=== PATIENT | female | born 1960 | race Caucasian/White ===

== ENCOUNTER 2019-07-09 11:11 | Emergency (ER) | payer BC ==
[2019-07-09] MEDS ORDERED: NORMAL SALINE 1000 ML 1,000 ML IV ONE (11:25)
[2019-07-09] MEDS ORDERED: KETOROLAC TROMETHAMINE INJ/PF 30 MG/1 ML SDV IV ONE (11:25)
[2019-07-09] MEDS ORDERED: METOCLOPRAMIDE HCL INJ/PF 10 MG/2 ML SDV IV ONE (11:25)
--- NOTE | 2019-07-09 11:25 | ER Document Report ---
ED Medical Screen (RME) - General Chief Complaint: Nausea/Vomiting Stated Complaint: NAUSEA,VOMITING Time Seen by Provider: 07/09/19 11:18 Primary Care Provider: MARY BETH BROWNE MD [Primary Care Provider] - Follow up as needed Mode of Arrival: Wheelchair Information source: Patient Notes: 58-year-old female with history of hypoglycemia, pancreatitis diverticulitis colitis C. difficile presents to the emergency department with reports of abdominal pain and that she is been vomiting since last Monday. Reports that she is unable to keep anything down. They did prescribe her Phenergan which did not help. She reports Zofran really did not help either. Complains of epigastric abdominal pain. Denies fever. Reports that she went to bite into plane last week because she was having diarrhea but tested negative for C. difficile at that time. Reports her problems started after she had her gallbladder removed in January. I have greeted and performed a rapid initial assessment of this patient. A comprehensive ED assessment and evaluation of the patient, analysis of test results and completion of the medical decision making process will be conducted by additional ED providers. Dictation of this chart was performed using voice recognition software; therefore, there may be some unintended grammatical errors. TRAVEL OUTSIDE OF THE [place] IN LAST 30 DAYS: No - Related Data Allergies/Adverse Reactions: latex [Latex] Allergy (Unknown, Verified 03/10/11 13:27) Sulfa (Sulfonamide Antibiotics) Allergy (Unknown, Verified 03/10/11 13:28) Past Medical History - Past Medical History Cardiac Medical History: Reports: Hx Hypercholesterolemia, Hx Hypertension - meds x 10 yrs Denies: Hx Coronary Artery Disease, Hx Heart Attack Pulmonary Medical History: Reports: Hx Asthma - no recent ER visits Denies: Hx Bronchitis, Hx COPD, Hx Pneumonia Neurological Medical History: Reports: Hx Migraine. 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 Denies: Hx Pacemaker - Immunizations Hx Diphtheria, Pertussis, Tetanus Vaccination: Yes Doctor's Discharge - Discharge Referrals: MARY BETH BROWNE MD [Primary Care Provider] - Follow up as needed
[2019-07-09 12:59] LABS: APPEARANCE,URINE SLIGHTLY-CLOUDY; BILIRUBIN,URINE SMALL (NEGATIVE); COLOR,URINE AMBER; GLUCOSE, URINE NEGATIVE (NEGATIVE); KETONES,URINE 80 mg/dL (NEGATIVE); LEUKOCYTE ESTERASE,URINE SMALL (NEGATIVE); NITRITE,URINE NEGATIVE (NEGATIVE); PROTEIN,URINE 100 mg/dL (NEGATIVE); URINE SPECIFIC GRAVITY 1.031
[2019-07-09] MEDS ORDERED: PROMETHAZINE HCL INJ 25 MG/1 ML VIAL IM ONE ×2 (13:02→19:23)
[2019-07-09] MEDS ORDERED: FENTANYL CITRATE INJ/PF 100 MCG/2 ML AMPUL IV ONE ×3 (13:02→19:24)
--- NOTE | 2019-07-09 13:07 | ER Document Report ---
ED GI/ - General Chief Complaint: Nausea/Vomiting Stated Complaint: NAUSEA,VOMITING Time Seen by Provider: 07/09/19 11:18 Primary Care Provider: MANDO PHAN NP [Primary Care Provider] - Follow up tomorrow Mode of Arrival: Wheelchair Information source: Patient Notes: Patient presents complaining of epigastric abdominal pain for the past 5 days. Patient reports nausea vomiting diarrhea. Patient states the diarrhea has since resolved although she is vomited 8 times. Patient also reports dysuria. Patient states that she was seen 4 days ago at another facility and diagnosed with a UTI and colitis. Patient was started on Flagyl and Keflex. Patient states that she has had chronic abdominal pain for the past 5 months after having her gallbladder removed. Patient also reports a history of gastric bypass and a Jennifer fundoplication. Patient does have pain medicine and nausea medicine at home although she feels that she cannot keep her medicines down due to her vomiting. TRAVEL OUTSIDE OF THE [place] IN LAST 30 DAYS: No - HPI Patient complains to provider of: Abdominal pain, Vomiting Onset: Other - 5 days Timing/Duration: Persistent Quality of pain: Sharp Pain Level: 5 Location: Epigastric Vaginal bleeding (Compared to normal period): None Associated symptoms: Dysuria, Nausea, Vomiting. denies: Blood in emesis, Chest pain, Chills, Diarrhea, Fever, Urinary hesitancy, Urinary frequency, Urinary retention, Urinary urgency, Vaginal discharge Exacerbated by: Denies Relieved by: Denies Similar symptoms previously: Yes Recently seen / treated by doctor: Yes - Related Data Allergies/Adverse Reactions: latex [Latex] Allergy (Unknown, Verified 03/10/11 13:27) Sulfa (Sulfonamide Antibiotics) Allergy (Unknown, Verified 03/10/11 13:28) Penicillins Allergy (Verified 07/09/19 11:31) Past Medical History - General Information source: Patient - Social History Smoking Status: Never Smoker Chew tobacco use (# tins/day): No Frequency of alcohol use: Occasional Drug Abuse: None Occupation: None Lives with: Family Family History: Reviewed & Not Pertinent Patient has suicidal ideation: No Patient has homicidal ideation: No - Past Medical History Cardiac Medical History: Reports: Hx Hypercholesterolemia, Hx Hypertension - meds x 10 yrs Pulmonary Medical History: Reports: Hx Asthma - no recent ER visits Neurological Medical History: Reports: Hx Migraine. 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 denies: Chills, Fever EENT: No symptoms reported Cardiovascular: No symptoms reported. denies: Chest pain, Dizziness, Lightheaded Respiratory: No symptoms reported. denies: Cough, Short of breath Gastrointestinal: Abdominal pain, Diarrhea, Nausea, Vomiting, Poor fluid intake. denies: Blood in vomit Genitourinary: Dysuria. denies: Flank pain, Hematuria Female Genitourinary: No symptoms reported Musculoskeletal: No symptoms reported. denies: Back pain Skin: No symptoms reported Hematologic/Lymphatic: No symptoms reported Neurological/Psychological: No symptoms reported Physical Exam - Vital signs Vitals: Temp Pulse Resp BP Pulse Ox 97.8 F 117 H 18 167/138 H 100 07/09/19 11:28 07/09/19 11:28 07/09/19 11:28 07/09/19 11:28 07/09/19 11:28 - General General appearance: Alert, Anxious In distress: None - HEENT Head: Normocephalic, Atraumatic Eyes: Normal Conjunctiva: Normal Nasal: Normal Mouth/Lips: Normal Mucous membranes: Normal Neck: Normal, Supple. No: Lymphadenopathy - Respiratory Respiratory status: No respiratory distress Chest status: Nontender Breath sounds: Normal. No: Rales, Rhonchi, Stridor, Wheezing Chest palpation: Normal - Cardiovascular Rhythm: Regular Heart sounds: S1 appreciated, S2 appreciated Murmur: No - Abdominal Inspection: Normal Distension: No distension Bowel sounds: Normal Tenderness: Tender - epigastric, LUQ, RUQ, Guarding - Back Back: Tender - Left lower lumbar paraspinal tenderness. No: Vertebra tenderness - Extremities General upper extremity: Normal inspection, Normal strength General lower extremity: Normal inspection, Normal strength - Neurological Neuro grossly intact: Yes Cognition: Normal Selina Coma Scale Eye Opening: Spontaneous Franklin Coma Scale Verbal: Oriented Selina Coma Scale Motor: Obeys Commands Franklin Coma Scale Total: 15 - Psychological Associated symptoms: Anxious - Skin Skin Temperature: Warm Skin Moisture: Dry Skin Color: Normal Course - Re-evaluation Re-evalutation: 07/09/19 16:23 Patient with nausea and retching. Patient does have a history of a Jennifer. Additional medication ordered. 07/09/19 18:01 Patient complains of pruritus after pain medication, Benadryl has been ordered. No other signs of allergic reaction. 07/09/19 19:25 Patient with benign diagnostic evaluation here today. Patient with mild UTI although just recently started taking Keflex to treat her UTI. Patient has a history of chronic abdominal pain over the past 5 months since having gallbladder surgery. Patient without any acute findings noted on CT scan here today. Patient without any objective vomiting although patient does complain of continued nausea. Patient does have nausea medication as well as pain medication to take at home but is oral tablets. Offered patient a prescription for rectal Phenergan in case she is unable to keep her oral tablets down. Patient encouraged to follow-up with her primary doctor, her bariatric surgeon as well as her press smith helper for further evaluation of her chronic abdominal pain. EKG, troponin and chest x-ray performed. Patient without any chest pain symptoms. No concern for cardiac source of patient's symptoms at this time. Patient presents with abdominal pain without signs of peritonitis or other life-threatening or serious etiology. Patient appears stable for discharge and has been instructed to return immediately if the symptoms worsen in any way for reevaluation. 07/09/19 21:40 - Vital Signs Vital signs: Temp Pulse Resp BP Pulse Ox 97.8 F 117 H 25 H 155/107 H 99 07/09/19 11:28 07/09/19 11:28 07/09/19 20:01 07/09/19 20:00 07/09/19 20:01 - Laboratory Result Diagrams: 07/09/19 15:05 07/09/19 15:05 Laboratory results interpreted by me: 07/09/19 07/09/19 07/09/19 11:37 15:05 15:05 MCV 102 H MCH 35.2 H RDW 14.3 H Sodium 135.1 L Carbon Dioxide 20 L Lipase 323.2 H Urine Protein 100 H Urine Ketones 80 H Urine Bilirubin SMALL H Urine Urobilinogen 2.0 H Ur Leukocyte Esterase SMALL H Urine Ascorbic Acid 40 H 07/09/19 19:25 Labs- Entire Visit 07/09/19 07/09/19 07/09/19 11:37 11:50 12:54 WBC Cancelled RBC Cancelled Hgb Cancelled Hct Cancelled MCV Cancelled MCH Cancelled MCHC Cancelled RDW Cancelled Plt Count Cancelled Lymph % (Auto) Cancelled Barren % (Auto) Cancelled Eos % (Auto) Cancelled Baso % (Auto) Cancelled Absolute Neuts (auto) Cancelled Absolute Lymphs (auto) Cancelled Absolute Monos (auto) Cancelled Absolute Eos (auto) Cancelled Absolute Basos (auto) Cancelled Seg Neutrophils % Cancelled Platelet Estimate Cancelled Sodium Potassium Chloride Carbon Dioxide Anion Gap BUN Creatinine Est GFR ( Amer) Est GFR (Non-Af Amer) Est GFR (MDRD) Non-Af Glucose POC Glucose 102 Calcium Total Bilirubin Direct Bilirubin Neonat Total Bilirubin Neonat Direct Bilirubin Neonat Indirect Bili AST ALT Alkaline Phosphatase Troponin I Total Protein Albumin Amylase Lipase EGFR Urine Color SAM Urine Appearance SLIGHTLY-CLOUDY Urine pH 6.0 Ur Specific Chamberlain 1.031 Urine Protein 100 H Urine Glucose (UA) NEGATIVE Urine Ketones 80 H Urine Blood NEGATIVE Urine Nitrite NEGATIVE Urine Bilirubin SMALL H Urine Urobilinogen 2.0 H Ur Leukocyte Esterase SMALL H Urine WBC (Auto) 11 Urine RBC (Auto) 6 U Hyaline Cast (Auto) 7 Squamous Epi Cells Auto 6 Urine Mucus (Auto) MANY Urine Ascorbic Acid 40 H Slides for Path Review Cancelled 07/09/19 07/09/19 07/09/19 12:54 15:05 15:05 WBC 4.8 RBC 3.96 Hgb 13.9 Hct 40.4 MCV 102 H MCH 35.2 H MCHC 34.5 RDW 14.3 H Plt Count 186 Lymph % (Auto) 22.7 Barren % (Auto) 8.1 Eos % (Auto) 0.1 Baso % (Auto) 0.5 Absolute Neuts (auto) 3.3 Absolute Lymphs (auto) 1.1 Absolute Monos (auto) 0.4 Absolute Eos (auto) 0.0 Absolute Basos (auto) 0.0 Seg Neutrophils % 68.6 Platelet Estimate Sodium Cancelled 135.1 L Potassium Cancelled 3.6 Chloride Cancelled 98 Carbon Dioxide Cancelled 20 L Anion Gap Cancelled 17 BUN Cancelled 13 Creatinine Cancelled 0.52 Est GFR ( Amer) Cancelled > 60 Est GFR (Non-Af Amer) Cancelled Est GFR (MDRD) Non-Af Cancelled > 60 Glucose Cancelled 87 POC Glucose Calcium Cancelled 8.9 Total Bilirubin Cancelled 0.6 Direct Bilirubin Cancelled 0.2 Neonat Total Bilirubin Cancelled Not Reportable Neonat Direct Bilirubin Cancelled Not Reportable Neonat Indirect Bili Cancelled Not Reportable AST Cancelled 25 ALT Cancelled 12 Alkaline Phosphatase Cancelled 80 Troponin I Total Protein Cancelled 7.4 Albumin Cancelled 4.1 Amylase Cancelled 102 Lipase Cancelled 323.2 H EGFR Cancelled Urine Color Urine Appearance Urine pH Ur Specific Chamberlain Urine Protein Urine Glucose (UA) Urine Ketones Urine Blood Urine Nitrite Urine Bilirubin Urine Urobilinogen Ur Leukocyte Esterase Urine WBC (Auto) Urine RBC (Auto) U Hyaline Cast (Auto) Squamous Epi Cells Auto Urine Mucus (Auto) Urine Ascorbic Acid Slides for Path Review 07/09/19 15:05 WBC RBC Hgb Hct MCV MCH MCHC RDW Plt Count Lymph % (Auto) Barren % (Auto) Eos % (Auto) Baso % (Auto) Absolute Neuts (auto) Absolute Lymphs (auto) Absolute Monos (auto) Absolute Eos (auto) Absolute Basos (auto) Seg Neutrophils % Platelet Estimate Sodium Potassium Chloride Carbon Dioxide Anion Gap BUN Creatinine Est GFR ( Amer) Est GFR (Non-Af Amer) Est GFR (MDRD) Non-Af Glucose POC Glucose Calcium Total Bilirubin Direct Bilirubin Neonat Total Bilirubin Neonat Direct Bilirubin Neonat Indirect Bili AST ALT Alkaline Phosphatase Troponin I < 0.012 Total Protein Albumin Amylase Lipase EGFR Urine Color Urine Appearance Urine pH Ur Specific Chamberlain Urine Protein Urine Glucose (UA) Urine Ketones Urine Blood Urine Nitrite Urine Bilirubin Urine Urobilinogen Ur Leukocyte Esterase Urine WBC (Auto) Urine RBC (Auto) U Hyaline Cast (Auto) Squamous Epi Cells Auto Urine Mucus (Auto) Urine Ascorbic Acid Slides for Path Review - Diagnostic Test Radiology reviewed: Reports reviewed Discharge - Discharge Clinical Impression: Nausea Abdominal pain Qualifiers: Abdominal location: epigastric Qualified Code(s): R10.13 - Epigastric pain UTI (urinary tract infection) Qualifiers: Urinary tract infection type: site unspecified Hematuria presence: without hematuria Qualified Code(s): N39.0 - Urinary tract infection, site not specified Condition: Stable Disposition: HOME, SELF-CARE Instructions: Abdominal Pain ([facility]), Antinausea Medication ([facility]), Cephalexin ([facility]), Urinary Tract Infection ([facility]) Additional Instructions: Return immediately for any new or worsening symptoms Followup with your primary care provider, call tomorrow to make a followup appointment Continue to take your Keflex that you are previously prescribed. Urine culture is pending, we will call if you need any different treatment. Follow-up with your press smith helper as well as bariatric surgeon for recheck given your persistent chronic abdominal pain since your cholecystectomy (gallbladder surgery). Prescriptions: Promethazine HCl [Phenergan 25 mg Supp.rect] 1 supp ND Q6H PRN #10 supp.rect PRN Reason: Referrals: MANDO PHAN NP [Primary Care Provider] - Follow up tomorrow
[2019-07-09] MEDS ORDERED: ONDANSETRON HCL INJ/PF 4 MG/2 ML SDV IV ONE ×2 (13:09→16:22)
[2019-07-09 15:24] LABS: ABSOLUTE LYMPHOCYTES (AUTO) 1.1 10^3/uL (0.5-4.7); ABSOLUTE MONOCYTES (AUTO) 0.4 10^3/uL (0.1-1.4); ABSOLUTE NEUT (AUTO) 3.3 10^3/uL (1.7-8.2); BASOPHILS % (AUTO) 0.5 % (0-2); EOSINOPHILS % (AUTO) 0.1 % (0-6); HEMATOCRIT 40.4 % (36.0-47.0); HEMOGLOBIN 13.9 g/dL (12.0-15.5); LYMPHOCYTES % (AUTO) 22.7 % (13-45); MEAN CORPUSCULAR HEMOGLOBIN 35.2 pg (27.0-33.4); MEAN CORPUSCULAR HGB CONC 34.5 g/dL (32.0-36.0); MEAN CORPUSCULAR VOLUME 102 fl (80-97); MONOCYTES % (AUTO) 8.1 % (3-13); PLATELET COUNT 186 10^3/uL (150-450); RED BLOOD COUNT 3.96 10^6/uL (3.72-5.28); RED CELL DISTRIBUTION WIDTH 14.3 % (11.5-14.0); SEGMENTED NEUTROPHILS % (AUTO) 68.6 % (42-78); TOTAL CELLS COUNTED % (AUTO) 100 %; WHITE BLOOD COUNT 4.8 10^3/uL (4.0-10.5)
[2019-07-09 15:38] LABS: ALBUMIN 4.1 g/dL (3.5-5.0); ALKALINE PHOSPHATASE 80 U/L (38-126); AMYLASE 102 U/L (30-110); ANION GAP 17 (5-19); ASPARTATE AMINO TRANSFERASE 25 U/L (14-36); BILIRUBIN,DIRECT 0.2 mg/dL (0.0-0.4); BILIRUBIN,TOTAL 0.6 mg/dL (0.2-1.3); BLOOD UREA NITROGEN 13 mg/dL (7-20); CALCIUM 8.9 mg/dL (8.4-10.2); CARBON DIOXIDE 20 mmol/L (22-30); CHLORIDE 98 mmol/L (98-107); GLUCOSE 87 mg/dL (75-110); POTASSIUM 3.6 mmol/L (3.6-5.0); TOTAL PROTEIN 7.4 g/dL (6.3-8.2)
--- NOTE | 2019-07-09 16:00 | RADIOLOGY REPORT (SQ) ---
EXAM DESCRIPTION: CHEST 2 VIEWS COMPLETED DATE/TIME: 07/09/2019 3:50 pm REASON FOR STUDY: epig pain, RUQ, LUQ hx g bypass, julián COMPARISON: 07/25/2012 EXAM PARAMETERS: NUMBER OF VIEWS: two views TECHNIQUE: Digital Frontal and Lateral radiographic views of the chest acquired. RADIATION DOSE: NA LIMITATIONS: none FINDINGS: LUNGS AND PLEURA: No opacities, masses or pneumothorax. No pleural effusion. MEDIASTINUM AND HILAR STRUCTURES: No masses or contour abnormalities. HEART AND VASCULAR STRUCTURES: Heart normal size. No evidence for failure. BONES: No acute findings. HARDWARE: Prior cholecystectomy. OTHER: No other significant finding. IMPRESSION: NO ACUTE RADIOGRAPHIC FINDING IN THE CHEST. TECHNICAL DOCUMENTATION: JOB ID: [id number] [employer]- All Rights Reserved Reading location - IP/workstation name: [email or web address]
[2019-07-09] MEDS ORDERED: NORMAL SALINE 1000 ML 1,000 ML IV PRN (16:22)
[2019-07-09] MEDS ORDERED: DIPHENHYDRAMINE HCL 50 MG/ML VIAL IV ONE (18:00)
[2019-07-09] MEDS ORDERED: LISINOPRIL 10 MG TABLET PO ONE (18:07)
--- NOTE | 2019-07-09 18:42 | RADIOLOGY REPORT (SQ) ---
EXAM DESCRIPTION: CT ABD/PELVIS WITH IV ORAL COMPLETED DATE/TIME: 07/09/2019 5:42 pm REASON FOR STUDY: epig pain, RUQ, LUQ hx g bypass, Jennifer COMPARISON: None. TECHNIQUE: CT scan of the abdomen and pelvis performed using helical scanning technique with dynamic intravenous contrast injection. Oral contrast. Images reviewed with lung, soft tissue, and bone win dows. Reconstructed coronal and sagittal MPR images reviewed. Delayed images for evaluation of the ur inary system also acquired. All images stored on PACS. All CT scanners at this facility use dose modulation, iterative reconstruction, and/or weight based d osing when appropriate to reduce radiation dose to as low as reasonably achievable (ALARA). [facility]: Dose Right [facility]: CareDose [facility]: Dose Right [facility]: Teradose 4D [facility]: Sprooki CONTRAST TYPE AND DOSE: contrast/concentration: Isovue 350.00 mg/ml; Total Contrast Delivered: 51.0 ml; Total Saline Delivered: 19.7 ml RENAL FUNCTION: BUN 13 creatinine 0.52 RADIATION DOSE: CT Rad equipment meets quality standard of care and radiation dose reduction techniq ues were employed. CTDIvol: 4.8 - 5.8 mGy. DLP: 859 mGy-cm.. LIMITATIONS: None. FINDINGS: LOWER CHEST: No significant findings. No nodules or infiltrates. LIVER: Normal size. No masses. No dilated ducts. SPLEEN: Normal size. No focal lesions. PANCREAS: No masses. No significant calcifications. No adjacent inflammation or peripancreatic fluid collections. Pancreatic duct not dilated. GALLBLADDER: Surgically absent. ADRENAL GLANDS: No significant masses or asymmetry. RIGHT KIDNEY AND URETER: No solid masses. No significant calcifications. No hydronephrosis or hyd roureter. LEFT KIDNEY AND URETER: No solid masses. No significant calcifications. No hydronephrosis or hydr oureter. AORTA AND VESSELS: No aneurysm. No dissection. Renal arteries, SMA, celiac without stenosis. RETROPERITONEUM: No retroperitoneal adenopathy, hemorrhage or masses. BOWEL AND PERITONEAL CAVITY: Radiopaque suture around the gastroesophageal junction and stomach. Mil d sigmoid diverticulosis with no associated inflammation. APPENDIX: Not identified. PELVIS: No mass. No free fluid. Normal bladder. ABDOMINAL WALL: No masses. No hernias. BONES: No significant or acute findings. OTHER: No other significant finding. IMPRESSION: Surgical changes. Mild diverticulosis coli. No acute findings in the abdomen or pelvis . TECHNICAL DOCUMENTATION: JOB ID: [id number] Quality ID # [id number]: Final reports with documentation of one or more dose reduction techniques (e.g., Au tomated exposure control, adjustment of the mA and/or kV according to patient size, use of iterative reconstruction technique) 2010 [employer]- All Rights Reserved Reading location - IP/workstation name: [email or web address]
[2019-07-09 20:12] VITALS: BP 155/107
--- NOTE | 2019-07-09 22:47 | EKG REPORT ---
SEVERITY:- ABNORMAL ECG - ATRIAL FIBRILLATION, V-RATE 76-121 NONSPECIFIC T ABNORMALITIES, LATERAL LEADS : Confirmed by: Joshua Bustamante MD 09-Jul-2019 22:46:34
== END 2019-07-09 20:13 | disposition home or self-care (01) ==
LOC: ER 11:11
DX: K52.9 Noninfective gastroenteritis and colitis, unspecified (principal); N39.0 Urinary tract infection, site not specified; L29.9 Pruritus, unspecified; R10.13 Epigastric pain; G89.29 Other chronic pain; R10.816 Epigastric abdominal tenderness; R10.811 Right upper quadrant abdominal tenderness; R10.812 Left upper quadrant abdominal tenderness; R30.0 Dysuria; I10 Essential (primary) hypertension; J45.909 Unspecified asthma, uncomplicated; Z90.49 Acquired absence of other specified parts of digestive tract; Z87.19 Personal history of other diseases of the digestive system; Z98.84 Bariatric surgery status; Z98.890 Other specified postprocedural states; Z79.899 Other long term (current) drug therapy; Z91.040 Latex allergy status; Z88.2 Allergy status to sulfonamides; Z88.0 Allergy status to penicillin
CPT/HCPCS: 93005; 36415; 82962; 82150; 83690; 85025; 80053; 81001; 84484; 71046; 74177; 93010; J1200; J3010; J2550; J2405; J7030; 87086; 96361; 96372; 96374; 96375; 96376; 99284

== ENCOUNTER → 2019-08-01 | Outpatient (CLI) | payer BC ==
--- NOTE | 2019-08-01 12:45 | WOMENS IMAGING REPORT ---
EXAM DESCRIPTION: 3D SCREENING MAMMO BILAT COMPLETED DATE/TIME: 08/01/2019 11:45 am REASON FOR STUDY: Z12.31 SCREENING MAMMO Z12.31 ENCNTR SCREEN MAMMOGRAM FOR MALIGNANT NEOPLASM OF B RE COMPARISON: 05/10/2012 and 06/27/2011. EXAM PARAMETERS: Standard craniocaudal and mediolateral oblique views of each breast recorded using digital acquisition and breast tomosynthesis. Read with the assistance of CAD. .[facility] - [employer] Version 9.2 LIMITATIONS: None. FINDINGS: Findings present which are benign by mammographic criteria. No suspicious masses, calcific ations or architectural distortion. Pertinent benign findings: Benign calcifications. Benign mammographic findings may include one or more of the following: Smooth masses, popcorn/rim/coa rse calcifications, asymmetries, post-procedure changes, and lesions with long-standing stability. IMPRESSION: BENIGN MAMMOGRAPHIC FINDINGS. BIRADS 2 BREAST DENSITY: b. There are scattered areas of fibroglandular density. BIRAD: ASSESSMENT: 2 BENIGN FINDING(S) RECOMMENDATION: ROUTINE SCREENING COMMENT: The patient has been notified of the results by letter per [place] requirements. Additional no tification policies are in place for contacting patient with suspicious or incomplete findings. Quality ID #[id number]: The [employer] recommends an annual screening mammogram for women aged 40 years or over. This facility utilizes a reminder system to ensure that all patients receive reminder letters, and/or direct phone calls for appointments. This includes reminders for routine scr eening mammograms, diagnostic mammograms, or other Breast Imaging Interventions when appropriate. Th is patient will be placed in the appropriate reminder system. TECHNICAL DOCUMENTATION: FINDING NUMBER: (1) ASSESSMENT: (1) JOB ID: [id number] [employer]- All Rights Reserved Reading location - IP/workstation name: [email or web address]
== END ==
LOC: WI 11:15
PROVIDERS: ATTEND Nurse Practitioner
DX: Z12.31 Encounter for screening mammogram for malignant neoplasm of breast (principal)
CPT/HCPCS: 77063; 77067

== ENCOUNTER 2019-09-17 12:19 | Emergency (ER) | payer BC ==
[2019-09-17 13:41] VITALS: BP 152/128
[2019-09-17] MEDS ORDERED: NORMAL SALINE 1000 ML 1,000 ML IV ONE (14:07)
[2019-09-17] MEDS ORDERED: ONDANSETRON HCL INJ/PF 4 MG/2 ML SDV IV ONE (14:07)
--- NOTE | 2019-09-17 14:09 | ER Document Report ---
ED Medical Screen (RME) - General Chief Complaint: Nausea/Vomiting/Diarrhea Stated Complaint: VOMITING Time Seen by Provider: 09/17/19 14:04 Primary Care Provider: MANDO PHAN NP [Primary Care Provider] - Follow up as needed TRAVEL OUTSIDE OF THE [place] IN LAST 30 DAYS: No - HPI Notes: 09/17/19 14:07 59-year-old female with a history of hypertension presents emergency room with complaints of having right upper quadrant left upper quadrant epigastric abdominal pain along with nausea, vomiting and diarrhea for the last week that is become progressively worse in the last day. Patient states she had gastric bypass done in 2014 and also had a cholecystectomy done. Patient has not been taking her blood pressure medication due to and vomiting. Denies any sick contacts. Denies any recent travel new medications or foods. Denies any fevers or chills. Denies any chest pain or shortness of breath I have greeted and performed a rapid initial assessment of this patient. A comprehensive ED assessment and evaluation of the patient, analysis of test results and completion of the medical decision making process will be conducted by additional ED providers. PHYSICAL EXAMINATION: GENERAL: acutely ill , well-nourished and in mild distress HEAD: Atraumatic, normocephalic. CV: s1, s2 regular LUNGS: No respiratory distress abd: RUQ/LUQ pain, bilateral cva tenderness appreciated Musculoskeletal: Normal range of motion NEUROLOGICAL: Normal speech, normal gait. SKIN: Warm, Dry, normal turgor, no rashes or lesions noted. - Related Data Allergies/Adverse Reactions: latex [Latex] Allergy (Unknown, Verified 09/17/19 13:42) Sulfa (Sulfonamide Antibiotics) Allergy (Unknown, Verified 09/17/19 13:42) Penicillins Allergy (Verified 09/17/19 13:42) Past Medical History - Past Medical History Cardiac Medical History: Reports: Hx Hypercholesterolemia, Hx Hypertension - meds x 10 yrs Denies: Hx Coronary Artery Disease, Hx Heart Attack Pulmonary Medical History: Reports: Hx Asthma - no recent ER visits Denies: Hx Bronchitis, Hx COPD, Hx Pneumonia Neurological Medical History: Reports: Hx Migraine. 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 Denies: Hx Pacemaker - Immunizations Hx Diphtheria, Pertussis, Tetanus Vaccination: Yes Physical Exam - Vital signs Vitals: Temp Pulse Resp BP Pulse Ox 98.4 F 95 18 152/128 H 100 09/17/19 13:40 09/17/19 13:40 09/17/19 13:40 09/17/19 13:40 09/17/19 13:40 Course - Vital Signs Vital signs: Temp Pulse Resp BP Pulse Ox 98.4 F 95 18 152/128 H 100 09/17/19 13:40 09/17/19 13:40 09/17/19 13:40 09/17/19 13:40 09/17/19 13:40 Doctor's Discharge - Discharge Referrals: MANDO PHAN NP [Primary Care Provider] - Follow up as needed
[2019-09-17 15:09] LABS: ABSOLUTE LYMPHOCYTES (AUTO) 1.1 10^3/uL (0.5-4.7); ABSOLUTE MONOCYTES (AUTO) 0.5 10^3/uL (0.1-1.4); ABSOLUTE NEUT (AUTO) 3.9 10^3/uL (1.7-8.2); BASOPHILS % (AUTO) 0.7 % (0-2); EOSINOPHILS % (AUTO) 0.1 % (0-6); HEMATOCRIT 43.7 % (36.0-47.0); HEMOGLOBIN 15.1 g/dL (12.0-15.5); LYMPHOCYTES % (AUTO) 19.4 % (13-45); MEAN CORPUSCULAR HEMOGLOBIN 36.6 pg (27.0-33.4); MEAN CORPUSCULAR HGB CONC 34.5 g/dL (32.0-36.0); MEAN CORPUSCULAR VOLUME 106 fl (80-97); MONOCYTES % (AUTO) 9.4 % (3-13); PLATELET COUNT 304 10^3/uL (150-450); RED BLOOD COUNT 4.11 10^6/uL (3.72-5.28); SEGMENTED NEUTROPHILS % (AUTO) 70.4 % (42-78); TOTAL CELLS COUNTED % (AUTO) 100 %; WHITE BLOOD COUNT 5.6 10^3/uL (4.0-10.5)
[2019-09-17] MEDS ORDERED: HYDROMORPHONE HCL INJ/PF 2 MG/ML AMPULE IV ONE (15:20)
[2019-09-17] MEDS ORDERED: METOCLOPRAMIDE HCL INJ/PF 10 MG/2 ML SDV IV ONE (15:20)
--- NOTE | 2019-09-17 15:20 | ER Document Report ---
ED General - General Chief Complaint: Nausea/Vomiting/Diarrhea Stated Complaint: VOMITING Time Seen by Provider: 09/17/19 14:04 Primary Care Provider: MANDO PHAN NP [Primary Care Provider] - Follow up as needed Notes: Patient presents with a week of abdominal pain discomfort nausea vomiting and diarrhea, worsening pain in the lower abdomen bilateral lower quadrants. Similar to past episodes of diverticulitis and colitis. No fevers no chills. Decreased oral intake. No urinary symptoms. TRAVEL OUTSIDE OF THE [place] IN LAST 30 DAYS: No - Related Data Allergies/Adverse Reactions: latex [Latex] Allergy (Unknown, Verified 09/17/19 13:42) Sulfa (Sulfonamide Antibiotics) Allergy (Unknown, Verified 09/17/19 13:42) Penicillins Allergy (Verified 09/17/19 13:42) Home Medications: propanolol, lisinopril, topiramate, simvastatin, acrobus, B12 monthly Past Medical History - Social History Smoking Status: Former Smoker Chew tobacco use (# tins/day): No Frequency of alcohol use: None Drug Abuse: None Family History: Reviewed & Not Pertinent Patient has suicidal ideation: No Patient has homicidal ideation: No - Past Medical History Cardiac Medical History: Reports: Hx Hypercholesterolemia, Hx Hypertension - meds x 10 yrs Denies: Hx Coronary Artery Disease, Hx Heart Attack Pulmonary Medical History: Reports: Hx Asthma - no recent ER visits Denies: Hx Bronchitis, Hx COPD, Hx Pneumonia Neurological Medical History: Reports: Hx Migraine. 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 Denies: Hx Pacemaker - Immunizations Hx Diphtheria, Pertussis, Tetanus Vaccination: Yes Hx Pneumococcal Vaccination: 05/21/10 Review of Systems - Review of Systems Notes: REVIEW OF SYSTEMS GEN: Denies fever, chills, weight loss ENT: Denies sore throat, nasal discharge, ear pain EYES: Denies blurry vision, eye pain, discharge CV: Denies chest pain, palpitations, edema RESP: Denies cough, shortness of breath, wheezing GI: See HPI MSK: Denies joint pain/swelling, edema, SKIN: Denies rash, skin lesions LYMPH: Denies swollen glands/lymph nodes NEURO: Denies headache, focal weakness or numbness, dizziness PSYCH: Denies depression, suicidal or homicidal ideation PHYSICAL EXAMINATION General: No acute distress, well-nourished Head: Atraumatic, normocephalic ENT: Mouth normal, oropharynx moist, no exudates or tonsillar enlargement Eyes: Conjunctiva normal, pupils equal, lids normal Neck: No JVD, supple, no guarding CVS: Normal rate, regular rhythm, no murmurs Resp: No resp distress, equal and normal breath sounds bilaterally GI: Bilateral tenderness Ext: No deformities, no edema, normal range of motion in upper and lower ext Back: No CVA or midline TTP Skin: No rash, warm Lymphatic: No lymphadeopathy noted Neuro: Awake, alert. Face symmetric. GCS 15. Physical Exam - Vital signs Vitals: Temp Pulse Resp BP Pulse Ox 98.4 F 95 18 152/128 H 100 09/17/19 13:40 09/17/19 13:40 09/17/19 13:40 09/17/19 13:40 09/17/19 13:40 Course - Re-evaluation Re-evalutation: 09/17/19 21:24 Patient presents with lower abdominal pain with history of diverticulitis and colitis. No fever but mild lower abdominal tenderness today. He was given multiple rounds of pain medicine while labs and imaging were obtained. Negative acute on labs and imaging. On repeat assessment the patient does state that she is had chronic GI issues, prefers Phenergan for her pain and is actually been discharged from [facility] in hopes of getting an appointment with [facility] for her chronic mysterious abdominal issues. She is tolerating p.o. and I will discharge her with some Phenergan. I have discussed with the patient there likely diagnosis, aftercare plan, follow-up plans and my usual and customary return precautions. They verbalized understanding of this. - Vital Signs Vital signs: Temp Pulse Resp BP Pulse Ox 98.4 F 95 18 152/128 H 100 09/17/19 13:40 09/17/19 13:40 09/17/19 13:40 09/17/19 13:40 09/17/19 13:40 - Laboratory Result Diagrams: 09/17/19 14:45 09/17/19 14:45 Laboratory results interpreted by me: 09/17/19 09/17/19 09/17/19 14:45 14:45 17:42 MCV 106 H MCH 36.6 H RDW 18.0 H Sodium 136.1 L Chloride 96 L Carbon Dioxide 31 H AST 43 H Urine Ketones 20 H Urine Ascorbic Acid 40 H Discharge - Discharge Clinical Impression: Recurrent abdominal pain Condition: Good Disposition: HOME, SELF-CARE Instructions: Abdominal Pain ([facility]) Prescriptions: Promethazine HCl [Phenergan 25 mg Tablet] 25 mg PO Q4HP PRN #10 tablet PRN Reason: Diphenoxylate HCl/Atropine [Lomotil Tablet] 1 each PO BIDP PRN #10 tablet PRN Reason: Referrals: MANDO PHAN NP [Primary Care Provider] - Follow up as needed
[2019-09-17 15:34] LABS: ALBUMIN 4.7 g/dL (3.5-5.0); ALKALINE PHOSPHATASE 77 U/L (38-126); ANION GAP 9 (5-19); ASPARTATE AMINO TRANSFERASE 43 U/L (14-36); BILIRUBIN,TOTAL 0.8 mg/dL (0.2-1.3); BLOOD UREA NITROGEN 15 mg/dL (7-20); CALCIUM 9.8 mg/dL (8.4-10.2); CARBON DIOXIDE 31 mmol/L (22-30); CHLORIDE 96 mmol/L (98-107); GLUCOSE 107 mg/dL (75-110); POTASSIUM 4.4 mmol/L (3.6-5.0); TOTAL PROTEIN 7.9 g/dL (6.3-8.2)
[2019-09-17] MEDS ORDERED: DIPHENHYDRAMINE HCL 50 MG CAPSULE PO ONE (16:31)
--- NOTE | 2019-09-17 17:12 | RADIOLOGY REPORT (SQ) ---
EXAM DESCRIPTION: CT ABD/PELVIS WITH IV ONLY COMPLETED DATE/TIME: 09/17/2019 4:57 pm REASON FOR STUDY: RUQ/LUQ/Epigastric abd pain COMPARISON: Normal CT abdomen pelvis 07/09/2019 Abdominal ultrasound 05/24/2016, 03/04/2016 TECHNIQUE: CT scan of the abdomen and pelvis performed using helical scanning technique with dynamic intravenous contrast injection. No oral contrast. Images reviewed with lung, soft tissue, and bone windows. Reconstructed coronal and sagittal MPR images reviewed. Delayed images for evaluation of the urinary system also acquired. All images stored on PACS. All CT scanners at this facility use dose modulation, iterative reconstruction, and/or weight based d osing when appropriate to reduce radiation dose to as low as reasonably achievable (ALARA). [facility]: Dose Right [facility]: CareDose [facility]: Dose Right [facility]: Teradose 4D [facility]: Sleepy's CONTRAST TYPE AND DOSE: 55 mL of IV Omnipaque 350- low osmolar. RENAL FUNCTION: Creatinine 0.5 RADIATION DOSE: CT Rad equipment meets quality standard of care and radiation dose reduction techniq ues were employed. CTDIvol: NaN mGy. DLP: 0 mGy-cm.. LIMITATIONS: None. FINDINGS: LOWER CHEST: No significant findings. No nodules or infiltrates. LIVER: Normal size. No masses. No dilated ducts. SPLEEN: Normal size. No focal lesions. PANCREAS: No masses. No significant calcifications. No adjacent inflammation or peripancreatic fluid collections. Pancreatic duct not dilated. GALLBLADDER: Surgically absent ADRENAL GLANDS: No significant masses or asymmetry. RIGHT KIDNEY AND URETER: No solid masses. No significant calcifications. No hydronephrosis or hyd roureter. LEFT KIDNEY AND URETER: No solid masses. No significant calcifications. No hydronephrosis or hydr oureter. AORTA AND VESSELS: No aneurysm. No dissection. Renal arteries, SMA, celiac without stenosis. RETROPERITONEUM: No retroperitoneal adenopathy, hemorrhage or masses. BOWEL AND PERITONEAL CAVITY: Post gastric bypass. No CT evidence of bowel obstruction or free intrap eritoneal air or fluid. Colonic diverticuli are present without CT signs of acute diverticulitis. APPENDIX: Appendicolith in the appendix on axial image 59/91 without periappendiceal inflammation or enlargement of the appendix. PELVIS: No mass. No free fluid. Normal bladder. Normal size female pelvic organs ABDOMINAL WALL: No masses. No hernias. BONES: No significant or acute findings. OTHER: No other significant finding. IMPRESSION: No acute findings TECHNICAL DOCUMENTATION: JOB ID: [id number] Quality ID # [id number]: Final reports with documentation of one or more dose reduction techniques (e.g., Au tomated exposure control, adjustment of the mA and/or kV according to patient size, use of iterative reconstruction technique) 2010 [employer]- All Rights Reserved Reading location - IP/workstation name: [email or web address]
[2019-09-17 18:12] LABS: APPEARANCE,URINE CLEAR; BILIRUBIN,URINE NEGATIVE (NEGATIVE); COLOR,URINE YELLOW; GLUCOSE, URINE NEGATIVE (NEGATIVE); KETONES,URINE 20 mg/dL (NEGATIVE); LEUKOCYTE ESTERASE,URINE NEGATIVE (NEGATIVE); NITRITE,URINE NEGATIVE (NEGATIVE); PROTEIN,URINE NEGATIVE (NEGATIVE); UROBILINOGEN,URINE NEGATIVE mg/dL (<2.0)
[2019-09-17 18:19] LABS: URINE SPECIFIC GRAVITY > 1.060
== END 2019-09-17 18:49 | disposition home or self-care (01) ==
LOC: ER 12:19
DX: R10.31 Right lower quadrant pain (principal); R10.32 Left lower quadrant pain; R10.9 Unspecified abdominal pain; G89.29 Other chronic pain; R11.2 Nausea with vomiting, unspecified; R19.7 Diarrhea, unspecified; Z87.891 Personal history of nicotine dependence
CPT/HCPCS: 99284; 96361; 96374; 96375; 36415; 83690; 85025; 80053; 81001; 74177; J2765; J1170; J2405; J7030

== ENCOUNTER → 2020-08-03 | Outpatient (CLI) | payer BC ==
--- NOTE | 2020-08-03 10:54 | WOMENS IMAGING REPORT ---
EXAM DESCRIPTION: BILAT SCREENING MAMMO W/CAD IMAGES COMPLETED DATE/TIME: 08/03/2020 10:20 am REASON FOR STUDY: Z12.31 ENCOUNTER FOR SCREENING MAMMOGRAM FOR MALIGNANT NEOPLASM OF BREAST Z12.31 ENCNTR SCREEN MAMMOGRAM FOR MALIGNANT NEOPLASM OF [place]IAM COMPARISON: MULTIPLE SINCE 2010 EXAM PARAMETERS: Standard craniocaudal and mediolateral oblique views of each breast recorded using digital acquisition. Read with the assistance of CAD. .[facility] - [employer] Leveling Machine Version 9.2 LIMITATIONS: None. FINDINGS: Findings present which are benign by mammographic criteria. No suspicious masses, calcifi cations or architectural distortion. Pertinent benign findings: Benign calcifications bilaterally. Old breast biopsy marker right retroareolar region Benign mammographic findings may include one or more of the following: Smooth masses, popcorn/rim/co arse calcifications, asymmetries, post-procedure changes, and lesions with long-standing stability. IMPRESSION: BENIGN MAMMOGRAPHIC FINDINGS. BIRADS 2 BREAST DENSITY: b. There are scattered areas of fibroglandular density. BIRAD: ASSESSMENT: 2 BENIGN FINDING(S) RECOMMENDATION: ROUTINE SCREENING COMMENT: The patient has been notified of the results by letter per [place] requirements. Additional no tification policies are in place for contacting patient with suspicious or incomplete findings. Quality ID #[id number]: The [employer] recommends an annual screening mammogram for women aged 40 years or over. This facility utilizes a reminder system to ensure that all patients receive reminder letters, and/or direct phone calls for appointments. This includes reminders for routine scr eening mammograms, diagnostic mammograms, or other Breast Imaging Interventions when appropriate. Th is patient will be placed in the appropriate reminder system. TECHNICAL DOCUMENTATION: FINDING NUMBER: (1) ASSESSMENT: (1) JOB ID: [id number] 2010 [employer]- All Rights Reserved Reading location - IP/workstation name: [email or web address]
== END ==
LOC: WI 10:15
PROVIDERS: ATTEND Nurse Practitioner
DX: Z12.31 Encounter for screening mammogram for malignant neoplasm of breast (principal)
CPT/HCPCS: 77067